=== PATIENT | female | born 1955 | race Caucasian/White ===

== ENCOUNTER 2016-11-09 08:00 | Outpatient (CLI) | payer MEDICARE, MEDICAID ==
[2016-11-09 18:33] LABS: BILIRUBIN,URINE NEGATIVE (NEGATIVE)
[2016-11-09 18:54] LABS: UR CULTURE IF IND INDICATED
== END 2016-11-09 08:01 | disposition home or self-care (01) ==
LOC: LAB.R 08:00
PROVIDERS: ATTEND Nurse Practitioner Family
DX: N39.0 Urinary tract infection, site not specified (principal)
CPT/HCPCS: 81001; 87086

== ENCOUNTER 2018-05-02 13:35 | Outpatient (CLI) | payer MEDICARE ==
[2018-05-02 18:05] LABS: ALBUMIN 4.3 g/dL (3.2-5.5); ALBUMIN/GLOBULIN RATIO 1.4 (1.0-2.2); CALCIUM 9.7 mg/dL (8.5-10.3); CREATININE 0.9 mg/dL (0.4-1.0); TOTAL PROTEIN 7.4 g/dL (6.7-8.2)
== END 2018-05-02 13:36 | disposition home or self-care (01) ==
LOC: LAB.F 13:35
PROVIDERS: ATTEND Internal Medicine
DX: I10 Essential (primary) hypertension (principal)
CPT/HCPCS: 36415; 80053; 81003

== ENCOUNTER 2018-05-04 10:54 | Outpatient (CLI) | payer MEDICARE ==
[2018-05-04 18:17] LABS: PHOSPHORUS 3.2 mg/dL (2.5-4.6); URIC ACID 4.5 mg/dL (2.6-7.2)
== END 2018-05-04 10:55 | disposition home or self-care (01) ==
LOC: LAB.F 10:54
PROVIDERS: ATTEND Internal Medicine
DX: I10 Essential (primary) hypertension (principal)
CPT/HCPCS: 36415; 83615; 84100; 84550

== ENCOUNTER 2018-05-04 14:00 | Outpatient (CLI) | payer MEDICARE ==
[2018-05-09 11:46] LABS: METANEPHRINE 123 mcg/24 h (90-315); NORMETANEPHRINE 267 mcg/24 h (122-676); TOTAL VOLUME 900 mL
== END 2018-05-04 23:59 | disposition home or self-care (01) ==
LOC: LAB.R 14:00
PROVIDERS: ATTEND Internal Medicine
DX: I10 Essential (primary) hypertension (principal)
CPT/HCPCS: 81599; 82384; 82570; 83835

== ENCOUNTER 2018-05-13 13:27 | Outpatient (CLI) | payer MEDICARE | END 2018-05-13 13:28 | disposition short-term general hospital (02) | LOC: EMS 13:27 | PROVIDERS: ATTEND Surgery | DX: R10.31 Right lower quadrant pain (principal); R10.32 Left lower quadrant pain; R11.2 Nausea with vomiting, unspecified; R61 Generalized hyperhidrosis; R20.2 Paresthesia of skin | CPT/HCPCS: A0425; A0427 ==

== ENCOUNTER 2018-05-29 08:00 | Outpatient (CLI) | payer MEDICARE ==
[2018-05-29 20:40] LABS: BASOPHILS % (AUTO) 0.5 %; EOSINOPHILS % (AUTO) 0.4 %; HGB - HEMOGLOBIN 13.6 g/dL (12.0-16.0); LYMPHOCYTES # (AUTO) 1.7 10^3/uL (1.5-3.5); MEAN CORPUSCULAR HGB CONC 32.8 g/dL (32.0-36.0); MEAN CORPUSCULAR VOLUME 91.3 fL (81.0-99.0); MEAN PLATELET VOLUME 9.3 fL (7.9-10.8); MONOCYTES # (AUTO) 0.6 10^3/uL (0.0-1.0); MONOCYTES % (AUTO) 8.2 %; NEUTROPHILS # (AUTO) 4.7 10^3/uL (1.5-6.6); NEUTROPHILS % (AUTO) 66.9 %; PLT - PLATELET COUNT 268 10^3/uL (130-450); RED BLOOD COUNT 4.54 10^6/uL (4.20-5.40); RED CELL DISTRIBUTION WIDTH 13.2 % (12.0-15.0); WHITE BLOOD COUNT 7.1 x10^3/uL (4.8-10.8)
== END 2018-05-29 23:59 | disposition home or self-care (01) ==
LOC: LAB.S 08:00
PROVIDERS: ATTEND Internal Medicine
DX: D75.1 Secondary polycythemia (principal); I73.9 Peripheral vascular disease, unspecified
CPT/HCPCS: 36415; 81270; 81599; 85025; 85651; 86140

== ENCOUNTER 2018-07-31 08:00 | Outpatient (CLI) | payer MEDICARE ==
[2018-07-31 18:16] LABS: BASOPHILS # (AUTO) 0.1 10^3/uL (0.0-0.1); BASOPHILS % (AUTO) 0.8 %; EOSINOPHILS % (AUTO) 0.3 %; HGB - HEMOGLOBIN 13.7 g/dL (12.0-16.0); LYMPHOCYTES # (AUTO) 1.8 10^3/uL (1.5-3.5); LYMPHOCYTES % (AUTO) 27.9 %; MEAN CORPUSCULAR HEMOGLOBIN 30.3 pg (27.0-31.0); MEAN CORPUSCULAR HGB CONC 33.6 g/dL (32.0-36.0); MEAN CORPUSCULAR VOLUME 90.3 fL (81.0-99.0); MEAN PLATELET VOLUME 9.4 fL (7.9-10.8); MONOCYTES # (AUTO) 0.6 10^3/uL (0.0-1.0); MONOCYTES % (AUTO) 8.8 %; NEUTROPHILS # (AUTO) 4.1 10^3/uL (1.5-6.6); NEUTROPHILS % (AUTO) 62.2 %; PLT - PLATELET COUNT 189 10^3/uL (130-450); RED BLOOD COUNT 4.51 10^6/uL (4.20-5.40); RED CELL DISTRIBUTION WIDTH 12.8 % (12.0-15.0); WHITE BLOOD COUNT 6.6 x10^3/uL (4.8-10.8)
[2018-07-31 18:31] LABS: CHOL/HDL RATIO 2.4 (<4.4); CHOLESTEROL 170 mg/dL; HDL CHOLESTEROL 70 mg/dL; LDL CHOLESTEROL,CALCULATED 89 mg/dL; LDL/HDL RATIO 1.3 (<4.4); VLDL CHOLESTEROL 11 mg/dL
[2018-07-31 18:32] LABS: HB2 TOTAL 14.6 g/dL; HEMOGLOBIN A1C 0.77 g/dL
[2018-07-31 18:39] LABS: CREATININE,URINE 105.5 mg/dL; MICROALBUM/CREATININE RATIO,UR 20.9 ug/mg (<30.0); MICROALBUMIN,URINE 2.2 mg/dL (0-300.0)
[2018-07-31 18:47] LABS: CRP - C-REACTIVE PROTEIN < 1.0 mg/dL (0-1.0)
== END 2018-07-31 23:59 | disposition home or self-care (01) ==
LOC: LAB.S 08:00
PROVIDERS: ATTEND Internal Medicine
DX: E10.9 Type 1 diabetes mellitus without complications (principal); K52.9 Noninfective gastroenteritis and colitis, unspecified
CPT/HCPCS: 36415; 80061; 82043; 82570; 83036; 83721; 85025; 85651; 86140

== ENCOUNTER 2018-08-15 08:00 | Outpatient (CLI) | payer MEDICARE | END 2018-08-15 23:59 | disposition home or self-care (01) | LOC: LAB.R 08:00 | PROVIDERS: ATTEND Internal Medicine | DX: R10.9 Unspecified abdominal pain (principal) | CPT/HCPCS: 87493 ==